=== PATIENT | female | born 1955 | race Two or more races ===

== ENCOUNTER 2023-11-06 10:13 | Inpatient (IN) | payer OTHER ==
[2023-11-06 10:50] VITALS: BMI 30.2
[2023-11-06] MEDS ORDERED: LOPERAMIDE HCL 2 MG CAPSULE PO PRN (11:20)
[2023-11-06] MEDS ORDERED: NICOTINE POLACRILEX 2 MG GUM BUC PRN (11:20)
[2023-11-06] MEDS ORDERED: DICYCLOMINE HCL 10 MG CAPSULE PO PRN (11:20)
[2023-11-06] MEDS ORDERED: ONDANSETRON *ODT* 4 MG TABLET SL PRN (11:20)
[2023-11-06] MEDS ORDERED: NALOXONE HCL 0.4 MG/ML VIAL IM PRN (11:20)
[2023-11-06] MEDS ORDERED: guaiFENesin 600 MG TABLET.ER (FP) PO PRN (11:20)
[2023-11-06] MEDS ORDERED: BENZOCAINE/MENTHOL (CHLORASEPTIC ) LOZENGE MM PRN (11:20)
[2023-11-06] MEDS ORDERED: NALOXONE HCL (KLOXXADO) 8 MG SPRAY NS PRN (11:20)
[2023-11-06] MEDS ORDERED: MAGNESIUM HYDROX 2400MG/30ML ORAL SUSPENSION 30 ML CUP PO PRN (11:20)
[2023-11-06] MEDS ORDERED: ACETAMINOPHEN 325 MG TABLET (FP) PO PRN (11:20)
[2023-11-06] MEDS ORDERED: BISMUTH SUBSALICYLATE 524 MG/30 ML PO PRN (11:20)
[2023-11-06] MEDS ORDERED: POLYETHYLENE GLYCOL (HEALTHYLAX) 3350 17 GM PACKET PO PRN (11:20)
[2023-11-06] MEDS ORDERED: IBUPROFEN 400 MG TABLET (FP) PO PRN (11:20)
[2023-11-06] MEDS ORDERED: BACLOFEN 10 MG TABLET (FP) PO PRN (11:20)
[2023-11-06] MEDS ORDERED: MAG HYDROX/AL HYDROX/SIMETH 30 ML UNIT-DOSE CUP PO PRN (11:20)
[2023-11-06] MEDS ORDERED: BENZONATATE 200 MG CAPSULE PO PRN (11:20)
[2023-11-06] MEDS: ASPIRIN 81 MG CHEWABLE TABLETS PO SCH (13:55)
[2023-11-06] MEDS: AMOX TR/POT CLAV 875MG/125MG TABLETS (FP) PO SCH (17:33)
[2023-11-06] MEDS: ATORVASTATIN CA 80 MG TABLET (FP) PO SCH (22:13)
[2023-11-06] MEDS: THIAMINE HCL 100 MG TABLET (FP) PO SCH (22:13)
[2023-11-06] MEDS: QUEtiapine FUMARATE 50 MG TABLET PO SCH (22:13)
[2023-11-06] MEDS: CARVEDILOL 12.5 MG TABLET (FP) PO SCH (22:13)
[2023-11-06] MEDS: MELATONIN 5 MG TABLETS PO SCH (22:14)
[2023-11-07] MEDS: BISACODYL 5 MG TABLET.DR (FP) PO SCH ×2 (00:36→22:19)
[2023-11-07] MEDS: hydrOXYzine PAMOATE 25 MG CAPSULE (FP) PO PRN ×2 (05:20→14:59)
[2023-11-07] MEDS: AMOX TR/POT CLAV 875MG/125MG TABLETS (FP) PO SCH ×2 (07:18→17:19)
[2023-11-07] MEDS: ASPIRIN 81 MG CHEWABLE TABLETS PO SCH (10:05)
[2023-11-07] MEDS: PRENATAL VITAMINS W/ FOLIC ACID TABLET (FP) PO SCH (10:05)
[2023-11-07] MEDS: CARVEDILOL 12.5 MG TABLET (FP) PO SCH ×2 (10:05→22:19)
[2023-11-07] MEDS: IBUPROFEN 600 MG TABLET (FP) PO PRN ×2 (10:08→17:21)
[2023-11-07] MEDS: TIOTROPIUM BROMIDE 2.5 MCG (SPIRIVA) RESPIMAT INHALER IH SCH (10:20)
[2023-11-07] MEDS: CYCLOSPORINE OU SCH (10:47)
[2023-11-07 10:58] LABS: CHLORIDE 105 mmol/L (98-107); SODIUM 141 mmol/L (136-145)
[2023-11-07 11:19] LABS: HEMATOCRIT 39.3 % (32.4-45.2); HEMOGLOBIN 12.8 GM/dL (10.7-15.3); MCH 29.4 pg (25.7-33.7); MCHC 32.5 g/dl (32.0-36.0); MEAN CELL VOLUME 90.4 fl (80-96); MEAN PLT VOLUME 9.5 fl (7.5-11.1); PLATELET COUNT 220 10^3/uL (134-434); RBC 4.35 M/mm3 (3.60-5.2); RDW 15.5 % (11.6-15.6); WHITE BLOOD COUNT 7.9 K/mm3 (4.0-10.0)
[2023-11-07 11:22] LABS: ALBUMIN 3.2 g/dl (3.4-5.0)
[2023-11-07] MEDS ORDERED: LISINOPRIL 10 MG TABLET PO ONE (11:22)
[2023-11-07 11:23] LABS: ANION GAP 7 mmol/L (4-13); CALCIUM 8.9 mg/dL (8.5-10.1); CO2 30 mmol/L (21-32); GLUCOSE,RANDOM 116 mg/dL (74-106)
[2023-11-07 11:24] LABS: BLOOD UREA NITROGEN 6.6 mg/dL (7-18)
[2023-11-07 11:25] LABS: CREATININE 0.8 mg/dL (0.55-1.3); SGPT/ALT 22 U/L (13-61)
[2023-11-07 11:27] LABS: BILIRUBIN,TOTAL 0.2 mg/dL (0.2-1); SGOT/AST 16 U/L (15-37); TOT PROT 6.3 g/dl (6.4-8.2)
[2023-11-07 11:28] LABS: ALK PHOS 97 U/L (45-117)
[2023-11-07] MEDS ORDERED: LISINOPRIL 20 MG TABLET PO ONE (15:35)
[2023-11-07] MEDS ORDERED: amLODIPine BESYLATE 5 MG TABLET (FP) PO ONE (20:58)
[2023-11-07] MEDS: QUEtiapine FUMARATE 50 MG TABLET PO SCH (22:19)
[2023-11-07] MEDS: ATORVASTATIN CA 80 MG TABLET (FP) PO SCH (22:19)
[2023-11-07] MEDS: THIAMINE HCL 100 MG TABLET (FP) PO SCH (22:19)
[2023-11-07] MEDS: MELATONIN 5 MG TABLETS PO SCH (22:19)
[2023-11-08] MEDS: hydrOXYzine PAMOATE 25 MG CAPSULE (FP) PO PRN (05:52)
[2023-11-08] MEDS ORDERED: amLODIPine BESYLATE 5 MG TABLET (FP) PO ONE ×2 (06:02→07:30)
[2023-11-08] MEDS: AMOX TR/POT CLAV 875MG/125MG TABLETS (FP) PO SCH ×2 (07:25→16:34)
[2023-11-08] MEDS ORDERED: LISINOPRIL 20 MG TABLET PO ONE (09:20)
[2023-11-08] MEDS: ASPIRIN 81 MG CHEWABLE TABLETS PO SCH (09:22)
[2023-11-08] MEDS: CYCLOSPORINE OU SCH (09:23)
[2023-11-08] MEDS: CARVEDILOL 12.5 MG TABLET (FP) PO SCH ×2 (09:23→23:47)
[2023-11-08] MEDS: PRENATAL VITAMINS W/ FOLIC ACID TABLET (FP) PO SCH (09:23)
[2023-11-08] MEDS: TIOTROPIUM BROMIDE 2.5 MCG (SPIRIVA) RESPIMAT INHALER IH SCH (09:23)
[2023-11-08] MEDS: IBUPROFEN 600 MG TABLET (FP) PO PRN (12:09)
[2023-11-08] MEDS ORDERED: BUPRENORPHINE/NALOXONE 2 MG/0.5 MG FILM PACKET SL ONE (12:56)
[2023-11-08] MEDS ORDERED: BUPRENORPHINE/NALOXONE 8 MG/2 MG FILM PACKET SL ONE ×2 (14:48→18:00)
[2023-11-08] MEDS ORDERED: diazePAM 5 MG TABLET PO ONE (14:50)
[2023-11-08] MEDS ORDERED: methaDONE HCL 10 MG TABLET (FOR DETOX USE ONLY) PO ONE (14:54)
[2023-11-08] MEDS ORDERED: ASPIRIN 81 MG CHEWABLE TABLETS PO ONE (16:00)
[2023-11-08] MEDS ORDERED: P-EPHED 60MG/TRIPROLIDI 2.5MG TABLET PO PRN (16:01)
[2023-11-08] MEDS ORDERED: TRIMETHOBENZAMIDE HCL 200MG/2ML INJ IM ONE (20:04)
[2023-11-08] MEDS: diazePAM 5 MG TABLET PO PRN (20:38)
[2023-11-08] MEDS: QUEtiapine FUMARATE 50 MG TABLET PO SCH (22:46)
[2023-11-08] MEDS: THIAMINE HCL 100 MG TABLET (FP) PO SCH (22:46)
[2023-11-08] MEDS: MELATONIN 5 MG TABLETS PO SCH (22:47)
[2023-11-08] MEDS: ATORVASTATIN CA 80 MG TABLET (FP) PO SCH (22:52)
[2023-11-08] MEDS: BISACODYL 5 MG TABLET.DR (FP) PO SCH (23:47)
[2023-11-09] MEDS: IBUPROFEN 600 MG TABLET (FP) PO PRN (04:04)
[2023-11-09] MEDS: diazePAM 5 MG TABLET PO PRN ×2 (04:16→10:16)
[2023-11-09] MEDS ORDERED: cloNIDine HCL 0.1 MG TABLET PO ONE (06:28)
[2023-11-09] MEDS: AMOX TR/POT CLAV 875MG/125MG TABLETS (FP) PO SCH ×2 (07:20→18:22)
[2023-11-09] MEDS ORDERED: LIRAGLUTIDE 0.6 MG/0.1 ML PEN.INJCTR SQ SCH (10:00)
[2023-11-09] MEDS: CYCLOSPORINE OU SCH (10:15)
[2023-11-09] MEDS: ASPIRIN 81 MG CHEWABLE TABLETS PO SCH (10:16)
[2023-11-09] MEDS: CARVEDILOL 12.5 MG TABLET (FP) PO SCH (10:16)
[2023-11-09] MEDS: PRENATAL VITAMINS W/ FOLIC ACID TABLET (FP) PO SCH (10:17)
[2023-11-09] MEDS: TIOTROPIUM BROMIDE 2.5 MCG (SPIRIVA) RESPIMAT INHALER IH SCH (10:18)
[2023-11-09 12:02] VITALS: RESP 18
[2023-11-09] MEDS ORDERED: amLODIPine BESYLATE 10 MG TABLET (FP) PO SCH (12:15)
[2023-11-09 12:36] VITALS: PULSE 90
[2023-11-09] MEDS ORDERED: ASPIRIN 81 MG CHEWABLE TABLETS PO ONE (14:15)
[2023-11-09 14:26] VITALS: BP 167/90; TEMP 97.7
[2023-11-10] MEDS ORDERED: methaDONE HCL 10 MG TABLET (FOR DETOX USE ONLY) PO ONE (10:00)
== END 2023-11-09 23:35 | disposition short-term general hospital (02) | DRG 897 ==
LOC: YASAS 10:13 → Y3N 11:36
PROVIDERS: ADMIT Allergy & Immunology; ATTEND Allergy & Immunology
PROC: HZ2ZZZZ Detoxification Services for Substance Abuse Treatment (ICD-10-PCS; principal; 2023-11-06)
DX: F11.23 Opioid dependence with withdrawal (principal); F17.210 Nicotine dependence, cigarettes, uncomplicated; F31.9 Bipolar disorder, unspecified; F19.982 Other psychoactive substance use, unspecified with psychoactive substance-induced sleep disorder; I10 Essential (primary) hypertension; I25.10 Atherosclerotic heart disease of native coronary artery without angina pectoris; E11.9 Type 2 diabetes mellitus without complications; J44.9 Chronic obstructive pulmonary disease, unspecified; E78.5 Hyperlipidemia, unspecified; R07.9 Chest pain, unspecified; R94.31 Abnormal electrocardiogram [ECG] [EKG]; M54.59 Other low back pain; G89.29 Other chronic pain; Z95.1 Presence of aortocoronary bypass graft; Z95.5 Presence of coronary angioplasty implant and graft; Z79.4 Long term (current) use of insulin
CPT/HCPCS: 36415; 80053; 80307; 82962; 85027; 86780; 87635; 93005; 93010; J0475

== ENCOUNTER 2023-11-09 15:28 | Observation (INO) | payer OTHER ==
[2023-11-09] MEDS ORDERED: ONDANSETRON 4 MG/2 ML VIAL IVPUSH ONE (16:27)
[2023-11-09] MEDS ORDERED: LACTATED RINGERS SOLUTION 1000 ML INFUS.BAG IV ONE (16:27)
[2023-11-09] MEDS ORDERED: ONDANSETRON 4 MG/2 ML VIAL ONE (16:49)
[2023-11-09] MEDS ORDERED: NITROGLYCERIN SUBLINGUAL 1/200 0.3 MG BTL SL ONE (16:50)
[2023-11-09] MEDS ORDERED: NITROGLYCERIN SUBLINGUAL 1/150 0.4 MG TAB ONE (17:08)
[2023-11-09 17:09] LABS: BASO % 0.5 % (0-2.0); HEMATOCRIT 47.3 % (32.4-45.2); HEMOGLOBIN 15.7 GM/dL (10.7-15.3); LYMPH % 12.1 % (8-40); MCH 29.4 pg (25.7-33.7); MCHC 33.2 g/dl (32.0-36.0); MEAN CELL VOLUME 88.6 fl (80-96); MEAN PLT VOLUME 9.2 fl (7.5-11.1); MONO % 6.4 % (3.8-10.2); PLATELET COUNT 285 10^3/uL (134-434); RBC 5.35 M/mm3 (3.60-5.2); RDW 15.4 % (11.6-15.6); WHITE BLOOD COUNT 21.5 K/mm3 (4.0-10.0)
[2023-11-09 17:16] LABS: INR 1.17 (0.83-1.09); PROTHROMBIN TIME (PATIENT) 13.5 SEC (9.7-13.0)
[2023-11-09 17:19] LABS: ACTIVATED PTT 35.4 SECONDS (25.2-36.5)
[2023-11-09 17:21] LABS: POTASSIUM 3.8 mmol/L (3.5-5.1)
[2023-11-09 17:23] LABS: BLOOD UREA NITROGEN 18.8 mg/dL (7-18); CALCIUM 10.2 mg/dL (8.5-10.1)
[2023-11-09 17:27] LABS: CREATININE 0.9 mg/dL (0.55-1.3)
[2023-11-09 17:28] LABS: BILIRUBIN,TOTAL 0.4 mg/dL (0.2-1)
[2023-11-09 17:30] LABS: ALBUMIN 4.2 g/dl (3.4-5.0)
[2023-11-09] MEDS ORDERED: SODIUM CHLORIDE 1,000 ML IV STA (18:05)
[2023-11-09] MEDS ORDERED: POTASSIUM CHLORIDE ORAL LIQUID 20 MEQ/15 ML PO ONE ×2 (18:05→18:08)
[2023-11-09 18:06] LABS: ANISOCYTOSIS 2+; MACROCYTOSIS 0; TEAR DROP CELLS 1+
[2023-11-09 18:29] LABS: EPI CELLS >36 /uL (0-25.1); HYALINE CASTS 10 /uL (0-3.1); PH,URINE 5.5 (5.0-8.0); URINE APPEARANCE CLEAR; URINE BACTERIA 21 /uL (0-1359); URINE BILIRUBIN NEGATIVE (NEGATIVE); URINE COLOR YELLOW; URINE GLUCOSE (UA) NEGATIVE (NEGATIVE); URINE KETONE NEGATIVE (NEGATIVE); URINE LEUK ESTERASE NEGATIVE (NEGATIVE); URINE NITRITE NEGATIVE (NEGATIVE); URINE PROTEIN 1+ (NEGATIVE); URINE RBC 31 /uL (0-23.9); URINE UROBILINOGEN 0.2 mg/dL (0.2-1.0)
[2023-11-09 18:46] LABS: URINE WBC 66.3 /uL (0-25.8)
[2023-11-09] MEDS ORDERED: POTASSIUM CHLORIDE ORAL LIQUID 20 MEQ/15 ML ONE (20:08)
[2023-11-09] MEDS ORDERED: cloNIDine HCL 0.1 MG TABLET PO PRN (21:37)
[2023-11-09] MEDS ORDERED: CARVEDILOL 12.5 MG TABLET (FP) ONE (22:24)
[2023-11-09] MEDS ORDERED: QUEtiapine FUMARATE 25 MG TABLET ONE (22:25)
[2023-11-09] MEDS ORDERED: ATORVASTATIN CA 80 MG TABLET (FP) ONE (22:25)
[2023-11-09] MEDS: BISACODYL 5 MG TABLET.DR (FP) PO SCH (22:30)
[2023-11-09] MEDS: ATORVASTATIN CA 80 MG TABLET (FP) PO SCH (22:30)
[2023-11-09] MEDS: QUEtiapine FUMARATE 50 MG TABLET PO SCH (22:30)
[2023-11-09] MEDS: CARVEDILOL 12.5 MG TABLET (FP) PO SCH (22:30)
[2023-11-09] MEDS: INSULIN ASPART SLIDING SCALE (NOVOLOG) 1 VIAL SQ SCH (23:36)
[2023-11-09] MEDS ORDERED: AMOX TR/POT CLAV 875MG/125MG TABLETS (FP) ONE (23:38)
[2023-11-09] MEDS: AMOX TR/POT CLAV 875MG/125MG TABLETS (FP) PO SCH (23:39)
[2023-11-10] MEDS ORDERED: MELATONIN 5 MG TABLETS PO PRN (00:40)
[2023-11-10] MEDS ORDERED: LOSARTAN POTASSIUM 50 MG TABLET PO ONE (01:46)
[2023-11-10] MEDS ORDERED: LOSARTAN POTASSIUM 50 MG TABLET ONE (03:05)
[2023-11-10] MEDS: INSULIN ASPART SLIDING SCALE (NOVOLOG) 1 VIAL SQ SCH ×4 (07:22→21:22)
[2023-11-10 08:28] LABS: BASO % 0.3 % (0-2.0); EOS % 0.1 % (0-4.5); HEMATOCRIT 45.5 % (32.4-45.2); HEMOGLOBIN 15.1 GM/dL (10.7-15.3); LYMPH % 18.4 % (8-40); MCH 29.5 pg (25.7-33.7); MCHC 33.1 g/dl (32.0-36.0); MEAN CELL VOLUME 89.2 fl (80-96); MEAN PLT VOLUME 9.1 fl (7.5-11.1); MONO % 4.7 % (3.8-10.2); NEUT % 76.5 % (42.8-82.8); PLATELET COUNT 246 10^3/uL (134-434); RDW 15.6 % (11.6-15.6); WHITE BLOOD COUNT 17.1 K/mm3 (4.0-10.0)
[2023-11-10 08:38] LABS: POTASSIUM 3.9 mmol/L (3.5-5.1)
[2023-11-10 08:44] LABS: CALCIUM 9.2 mg/dL (8.5-10.1)
[2023-11-10 08:45] LABS: ALBUMIN 3.8 g/dl (3.4-5.0); BLOOD UREA NITROGEN 12.2 mg/dL (7-18); CHOLESTEROL 164 mg/dL (50-200); MAGNESIUM 1.8 mg/dL (1.8-2.4)
[2023-11-10 08:46] LABS: LDL CHOLESTEROL (ONLY SJRH) 113 mg/dL (5-100)
[2023-11-10 08:47] LABS: CREATININE 0.7 mg/dL (0.55-1.3); PHOSPHOROUS 2.8 mg/dL (2.5-4.9)
[2023-11-10 08:48] LABS: BILIRUBIN,TOTAL 0.5 mg/dL (0.2-1); HDL CHOLESTEROL 41 mg/dL (40-60); TOT PROT 7.1 g/dl (6.4-8.2)
[2023-11-10] MEDS ORDERED: methaDONE HCL 10 MG TABLET ONE (09:23)
[2023-11-10] MEDS: ASPIRIN 81 MG CHEWABLE TABLETS PO SCH (09:36)
[2023-11-10] MEDS: AMOX TR/POT CLAV 875MG/125MG TABLETS (FP) PO SCH ×3 (09:37→23:22)
[2023-11-10] MEDS: FOLIC ACID 1 MG TABLET (FP) PO SCH (09:37)
[2023-11-10] MEDS: MULTIVITAMINS (DAILY MVI) TABLET (FP) PO SCH (09:37)
[2023-11-10] MEDS: ENOXAPARIN NA (PORCINE) 40 MG/0.4 ML DISP.SYRIN SQ SCH (09:37)
[2023-11-10] MEDS ORDERED: REGADENOSON 0.4 MG/5 ML PRE-FILLED SYRINGE IVPUSH ONE ×2 (09:56→10:00)
[2023-11-10] MEDS ORDERED: CYCLOSPORINE OP SCH (10:00)
[2023-11-10] MEDS ORDERED: amLODIPine BESYLATE 10 MG TABLET (FP) PO SCH (10:00)
[2023-11-10] MEDS ORDERED: methaDONE HCL 10 MG TABLET PO ONE (10:00)
[2023-11-10] MEDS: TIOTROPIUM BROMIDE 2.5 MCG (SPIRIVA) RESPIMAT INHALER IH SCH (13:33)
[2023-11-10] MEDS ORDERED: INSULIN (NOVOLOG) ASPART 100 UNITS/ML 10ML VIAL ONE (17:20)
[2023-11-10] MEDS: ATORVASTATIN CA 80 MG TABLET (FP) PO SCH ×2 (21:21→23:23)
[2023-11-10] MEDS: BISACODYL 5 MG TABLET.DR (FP) PO SCH (21:21)
[2023-11-10] MEDS: CARVEDILOL 12.5 MG TABLET (FP) PO SCH (21:21)
[2023-11-10] MEDS: QUEtiapine FUMARATE 50 MG TABLET PO SCH (21:22)
[2023-11-11 01:18] VITALS: RESP 18; BMI 28.0
[2023-11-11] MEDS: INSULIN ASPART SLIDING SCALE (NOVOLOG) 1 VIAL SQ SCH (06:17)
[2023-11-11 06:45] VITALS: BP 144/93; PULSE 103; TEMP 98.5
[2023-11-11] MEDS: FOLIC ACID 1 MG TABLET (FP) PO SCH (09:02)
[2023-11-11] MEDS: MULTIVITAMINS (DAILY MVI) TABLET (FP) PO SCH (09:02)
[2023-11-11] MEDS: ASPIRIN 81 MG CHEWABLE TABLETS PO SCH (09:02)
[2023-11-11] MEDS: ENOXAPARIN NA (PORCINE) 40 MG/0.4 ML DISP.SYRIN SQ SCH (09:02)
[2023-11-11] MEDS: AMOX TR/POT CLAV 875MG/125MG TABLETS (FP) PO SCH (09:02)
[2023-11-11] MEDS ORDERED: LOSARTAN POTASSIUM 50 MG TABLET PO SCH (10:00)
[2023-11-11 10:41] LABS: BASO % 0.3 % (0-2.0); EOS % 0.3 % (0-4.5); HEMATOCRIT 46.2 % (32.4-45.2); HEMOGLOBIN 15.2 GM/dL (10.7-15.3); LYMPH % 22.6 % (8-40); MCH 29.5 pg (25.7-33.7); MCHC 32.9 g/dl (32.0-36.0); MEAN CELL VOLUME 89.7 fl (80-96); MEAN PLT VOLUME 9.3 fl (7.5-11.1); MONO % 4.8 % (3.8-10.2); PLATELET COUNT 251 10^3/uL (134-434); RBC 5.15 M/mm3 (3.60-5.2); RDW 16.1 % (11.6-15.6); WHITE BLOOD COUNT 16.3 K/mm3 (4.0-10.0)
[2023-11-11 10:44] LABS: POTASSIUM 3.7 mmol/L (3.5-5.1)
[2023-11-11 10:51] LABS: CALCIUM 9.3 mg/dL (8.5-10.1)
[2023-11-11 10:52] LABS: ALBUMIN 3.7 g/dl (3.4-5.0); BLOOD UREA NITROGEN 15.5 mg/dL (7-18)
[2023-11-11 10:55] LABS: CREATININE 0.8 mg/dL (0.55-1.3)
[2023-11-11 10:56] LABS: BILIRUBIN,TOTAL 0.6 mg/dL (0.2-1)
[2023-11-11] MEDS: TIOTROPIUM BROMIDE 2.5 MCG (SPIRIVA) RESPIMAT INHALER IH SCH (11:18)
[2023-11-11 15:03] LABS: COCAINE, UR NEGATIVE (NEGATIVE); OPIATES, URI NEGATIVE (NEGATIVE); URINE BARBITURATES NEGATIVE (NEGATIVE)
[2023-11-11 15:04] LABS: PHENCYCLIDINE,URINE NEGATIVE (NEGATIVE)
[2023-11-11 15:07] LABS: METHADONE, UR POSITIVE (NEGATIVE); URINE AMPHETAMINES POSITIVE (NEGATIVE); URINE BENZODIAZEPINES POSITIVE (NEGATIVE)
[2023-11-12] MEDS ORDERED: methaDONE HCL 10 MG TABLET PO ONE (10:00)
== END 2023-11-11 12:53 | disposition other institution (70) ==
LOC: JER 15:28 → JERBED 18:01 → INTOOBSV 18:01 → J8W 11-10 20:28
PROVIDERS: ADMIT Internal Medicine; ATTEND Nurse Practitioner Acute Care
PROC: 3E023GC Introduction of Other Therapeutic Substance into Muscle, Percutaneous Approach (ICD-10-PCS; principal; 2023-11-09)
PROC: 3E0337Z Introduction of Electrolytic and Water Balance Substance into Peripheral Vein, Percutaneous Approach (ICD-10-PCS; 2023-11-09)
PROC: 3E033GC Introduction of Other Therapeutic Substance into Peripheral Vein, Percutaneous Approach (ICD-10-PCS; 2023-11-09)
DX: F31.9 Bipolar disorder, unspecified (principal); I25.10 Atherosclerotic heart disease of native coronary artery without angina pectoris; I11.0 Hypertensive heart disease with heart failure; E78.2 Mixed hyperlipidemia; E11.9 Type 2 diabetes mellitus without complications; J44.9 Chronic obstructive pulmonary disease, unspecified; R50.9 Fever, unspecified; J84.10 Pulmonary fibrosis, unspecified; R07.9 Chest pain, unspecified; J02.0 Streptococcal pharyngitis; D72.829 Elevated white blood cell count, unspecified; G47.00 Insomnia, unspecified; F19.90 Other psychoactive substance use, unspecified, uncomplicated; F11.90 Opioid use, unspecified, uncomplicated; Z95.1 Presence of aortocoronary bypass graft; Z95.5 Presence of coronary angioplasty implant and graft; F17.210 Nicotine dependence, cigarettes, uncomplicated
CPT/HCPCS: 0241U-QW; 36415; 71046-TC-FY; 71275-TC; 78452-TC; 80053; 80061; 80307; 81003; 82550; 82962; 83036; 83735; 84100; 84132; 84443; 84484; 85025; 85610; 85730; 87086; 93005; 93010; 93017; 93306-TC; 96361; 96372; 96374; 96375; 99285-25; A9502; G0378; J2785

== ENCOUNTER 2023-11-11 12:58 | Inpatient (IN) | payer OTHER ==
[2023-11-11 13:51] VITALS: BMI 28.3
[2023-11-11] MEDS ORDERED: METHOCARBAMOL 500 MG TABLET PO PRN (16:15)
[2023-11-11] MEDS ORDERED: DICYCLOMINE HCL 10 MG CAPSULE PO PRN (16:15)
[2023-11-11] MEDS ORDERED: LOPERAMIDE HCL 2 MG CAPSULE PO PRN (16:15)
[2023-11-11] MEDS ORDERED: ACETAMINOPHEN 325 MG TABLET (FP) PO PRN (16:15)
[2023-11-11] MEDS ORDERED: MAG HYDROX/AL HYDROX/SIMETH 30 ML UNIT-DOSE CUP PO PRN (16:15)
[2023-11-11] MEDS ORDERED: MAGNESIUM HYDROX 2400MG/30ML ORAL SUSPENSION 30 ML CUP PO PRN (16:15)
[2023-11-11] MEDS ORDERED: guaiFENesin 600 MG TABLET.ER (FP) PO PRN (16:15)
[2023-11-11] MEDS ORDERED: ONDANSETRON *ODT* 4 MG TABLET SL PRN (16:15)
[2023-11-11] MEDS ORDERED: hydrOXYzine PAMOATE 25 MG CAPSULE (FP) PO PRN (16:15)
[2023-11-11] MEDS ORDERED: POLYETHYLENE GLYCOL (HEALTHYLAX) 3350 17 GM PACKET PO PRN (16:15)
[2023-11-11] MEDS ORDERED: BENZONATATE 200 MG CAPSULE PO PRN (16:15)
[2023-11-11] MEDS ORDERED: IBUPROFEN 400 MG TABLET (FP) PO PRN (16:15)
[2023-11-11] MEDS ORDERED: NALOXONE HCL (KLOXXADO) 8 MG SPRAY NS PRN (16:15)
[2023-11-11] MEDS ORDERED: BENZOCAINE/MENTHOL (CHLORASEPTIC ) LOZENGE MM PRN (16:15)
[2023-11-11] MEDS ORDERED: IBUPROFEN 600 MG TABLET (FP) PO PRN (16:15)
[2023-11-11] MEDS ORDERED: NALOXONE HCL 0.4 MG/ML VIAL IM PRN (16:15)
[2023-11-11] MEDS ORDERED: BISMUTH SUBSALICYLATE 524 MG/30 ML PO PRN (16:15)
[2023-11-11] MEDS ORDERED: IBUPROFEN 400 MG TABLET (FP) PO ONE (16:54)
[2023-11-11] MEDS ORDERED: ONDANSETRON *ODT* 4 MG TABLET ONE (16:54)
[2023-11-11] MEDS ORDERED: PATIENT'S OWN MEDICATION (NON-FORMULARY) (Dulaglutide [Trulicity] 0.75 MG/0.5 ML Pen.Injct SQ SCH (17:15)
[2023-11-11] MEDS ORDERED: INSULIN (NOVOLOG) ASPART 100 UNITS/ML 10ML VIAL ONE (17:19)
[2023-11-11] MEDS: NICOTINE 14 MG/24 HOURS TOPICAL PATCH TD SCH (17:50)
[2023-11-11] MEDS: PRENATAL VITAMINS W/ FOLIC ACID TABLET (FP) PO SCH (17:50)
[2023-11-11] MEDS: INSULIN ASPART SLIDING SCALE (NOVOLOG) 1 VIAL SQ SCH (18:42)
[2023-11-11] MEDS: TIOTROPIUM BROMIDE 2.5 MCG (SPIRIVA) RESPIMAT INHALER IH SCH (20:48)
[2023-11-11] MEDS ORDERED: THIAMINE HCL 100 MG TABLET (FP) PO SCH (22:00)
[2023-11-11] MEDS ORDERED: ATORVASTATIN CA 80 MG TABLET (FP) PO SCH (22:00)
[2023-11-11] MEDS ORDERED: MELATONIN 5 MG TABLETS PO SCH (22:00)
[2023-11-11] MEDS ORDERED: BISACODYL 5 MG TABLET.DR (FP) PO SCH (22:00)
[2023-11-11] MEDS: CARVEDILOL 12.5 MG TABLET (FP) PO SCH (22:47)
[2023-11-12] MEDS ORDERED: methaDONE HCL 10 MG TABLET (FOR DETOX USE ONLY) PO ONE (06:00)
[2023-11-12] MEDS: INSULIN ASPART SLIDING SCALE (NOVOLOG) 1 VIAL SQ SCH ×2 (06:28→11:53)
[2023-11-12] MEDS ORDERED: AMOX TR/POT CLAV 875MG/125MG TABLETS (FP) PO SCH (08:00)
[2023-11-12] MEDS ORDERED: ASPIRIN 81 MG CHEWABLE TABLETS PO SCH (10:00)
[2023-11-12] MEDS: TIOTROPIUM BROMIDE 2.5 MCG (SPIRIVA) RESPIMAT INHALER IH SCH (10:19)
[2023-11-12] MEDS: PRENATAL VITAMINS W/ FOLIC ACID TABLET (FP) PO SCH (10:19)
[2023-11-12] MEDS: CARVEDILOL 12.5 MG TABLET (FP) PO SCH (10:19)
[2023-11-12] MEDS: NICOTINE 14 MG/24 HOURS TOPICAL PATCH TD SCH (10:20)
[2023-11-12 10:58] VITALS: BP 124/82; PULSE 101; RESP 20; TEMP 97.5
[2023-11-12] MEDS ORDERED: QUEtiapine FUMARATE 50 MG TABLET PO SCH (22:00)
== END 2023-11-12 14:57 | disposition left against medical advice (07) | DRG 894 ==
LOC: YASAS 12:58 → Y6N 16:24
PROVIDERS: ADMIT Allergy & Immunology; ATTEND Surgery
PROC: HZ2ZZZZ Detoxification Services for Substance Abuse Treatment (ICD-10-PCS; principal; 2023-11-11)
DX: F11.23 Opioid dependence with withdrawal (principal); F17.210 Nicotine dependence, cigarettes, uncomplicated; F31.9 Bipolar disorder, unspecified; F19.24 Other psychoactive substance dependence with psychoactive substance-induced mood disorder; I25.118 Atherosclerotic heart disease of native coronary artery with other forms of angina pectoris; I10 Essential (primary) hypertension; Z95.1 Presence of aortocoronary bypass graft; E78.2 Mixed hyperlipidemia; E11.59 Type 2 diabetes mellitus with other circulatory complications; Z79.85 Long-term (current) use of injectable non-insulin antidiabetic drugs; R07.9 Chest pain, unspecified; R94.31 Abnormal electrocardiogram [ECG] [EKG]
CPT/HCPCS: 82962; 87811; Q0162